=== PATIENT | female | born 1950 | race Caucasian/White ===

== ENCOUNTER 2019-10-09 12:05 | Emergency (ER) | payer OTHER ==
[~2019-10-09 12:05] MED LIST: MUCINEX D1 TAB PO
[2019-10-09] MEDS ORDERED: DIFLUCAN100 M1 PO (13:01)
[2019-10-09 13:09] VITALS: BP 132/72
== END 2019-10-09 13:10 | disposition home or self-care (01) | DRG 759 ==
LOC: ED 12:05
DX: B37.3 Candidiasis of vulva and vagina (principal); I10 Essential (primary) hypertension; E11.9 Type 2 diabetes mellitus without complications